=== PATIENT | male | born 1960 | race Caucasian/White ===

== ENCOUNTER 2021-10-14 17:43 | Emergency (ER) | payer OTHER ==
[~2021-10-14 17:43] MED LIST: NORCO 5-325 TA1 EACH PO; ZOCOR20 MG PO
== END 2021-10-14 19:05 | disposition expired ==
LOC: ER1 17:43
DX: J32.9 Chronic sinusitis, unspecified (principal); E78.5 Hyperlipidemia, unspecified; K21.9 Gastro-esophageal reflux disease without esophagitis; I10 Essential (primary) hypertension; Z20.822 Contact with and (suspected) exposure to COVID-19
CPT/HCPCS: 0240U; 99283